=== PATIENT | female | born 1985 | race Caucasian/White ===

== ENCOUNTER → 2017-02-17 | Outpatient (CLI) | payer BC ==
[2017-02-19 09:11] LABS: HEP B CORE IGM ANTIBODY Negative (Negative); HEPATITIS A IGM Negative (Negative); HEPATITIS B SURFACE AG Negative (Negative)
== END ==
LOC: LAB 08:17
PROVIDERS: ATTEND Physician Assistant Medical
DX: Z00.00 Encounter for general adult medical examination without abnormal findings (principal)
CPT/HCPCS: 86705; 86709; 86735; 86762; 86765; 86787; 86803; 87340